=== PATIENT | male | born 1975 | race Caucasian/White ===

== ENCOUNTER 2023-11-15 21:10 | Emergency (ER) | payer OTHER ==
[2023-11-15 21:33] VITALS: TEMP 98.1; O2SAT 98
--- NOTE | 2023-11-15 21:44 | ERPHSYRPT ---
- History of Present Illness Time Seen by Provider: 11/15/23 21:35 Source: patient Exam Limitations: no limitations Physician History: This is a 48-year-old white male patient who is right-handed and whose tetanus status up-to-date. He was working with a machine prior to arrival and his right index finger was caught in a belt and the machine. Patient presents with distal right index finger pain and skin tear present. Patient has full range of motion with no tendon injury apparent. Timing/Duration: today Quality: painful Severity: mild Location: hands (Right hand distal second digit) Allergies/Adverse Reactions: No Known Drug Allergies Allergy (Unverified 11/15/23 21:50) Travel Risk - International Travel Have you traveled outside of the country in past 3 weeks: No - Coronavirus Screening Are you exhibiting any of the following symptoms?: No Close contact with a COVID-19 positive Pt in past 14-21 Days: No - Review of Systems Constitutional: No Symptoms Eyes: No Symptoms Ears, Nose, & Throat: No Symptoms Respiratory: No Symptoms Cardiac: No Symptoms Abdominal/Gastrointestinal: No Symptoms Genitourinary Symptoms: No Symptoms Musculoskeletal: Injury (Right index finger) Skin: Other (Skin flap/tears index finger distal tip) Neurological: No Symptoms Psychological: No Symptoms Endocrine: No Symptoms Hematologic/Lymphatic: No Symptoms Immunological/Allergic: No Symptoms All Other Systems: Reviewed and Negative - Past Medical History Pertinent Past Medical History: No - Past Surgical History Past Surgical History: No - Nursing Vital Signs Nursing Vital Signs: Initial Vital Signs Temperature 98.1 F 11/15/23 21:31 Pulse Rate 70 11/15/23 21:31 Respiratory Rate 20 11/15/23 21:31 Blood Pressure 186/80 11/15/23 21:31 O2 Sat by Pulse Oximetry 98 11/15/23 21:31 Pain Scale Pain Intensity 4 - Physical Exam SpO2: 98 Procedures - Laceration/Wound Repair Right Anterior/Posterior Distal Finger Time of Procedure: 22:40 Wound Location: Right, hand (Distal index finger) Wound Length (cm): 1 Wound's Depth, Shape: superficial, linear, flap (Skin tear) Wound Explored: contaminated (Wound explored to the base in a bloodless field. No foreign body present.) Irrigated: Yes Hibiclens Prep: Yes Wound Repaired With: Steri-strips (Benzoin), Dermabond Ordered Tests: Active Orders 24 hr Category Date Time Status HAND (MINIMUM 3 VIEWS) Stat Exams 11/15/23 21:44 Taken Medication Summary Discontinued Medications Generic Name Dose Route Start Last Admin Trade Name Lloyd PRN Reason Stop Dose Admin Lidocaine HCl 5 ml 11/15/23 21:45 Lidocaine Hcl 1% 20 Ml Mdv 20 Ml Ml IJ 11/15/23 21:46 STAT ONE - Progress Progress: improved Progress Note: 11/15/23 22:46 Patient's medical issue is 1 of low complexity. The level complex in the workup performed based on review the patient's past medical history, review the patient's medication list, review the patient's drug allergy list, history present illness and physical findings on examination. X-ray of the right hand was ordered. Patient is not in need of any laboratory studies. I interpreted the x-ray of the patient's right hand. There is no evidence of any acute fracture or dislocation. Counseled pt/family regarding: diagnosis, need for follow-up, rad results Medical Desision Making - Diagnostic Testing Diagnostic test were ordered, analyzed, and reviewed by me: Yes Radiological Interpretation: Interpreted by me - Departure Departure Disposition: Home Clinical Impression: Injury of right index finger, Skin tear Condition: Stable Critical Care Time: No Referrals: GINGER AQUINO [Primary Care Provider] - Follow up/PCP as directed Additional Instructions: Keep the dressing in place for 24 hours. After 24 hours, remove the pressure dressing and leave the Steri-Strips in place until they fall off and a 5 to 7 days. As the Steri-Strips curl up, trim them with scissors. Take your antibiotics as prescribed. Use Tylenol and ibuprofen for pain control. Prescriptions: Cephalexin Mh 500 mg [Keflex 500 mg] 500 mg PO TID #15 cap
[2023-11-15] MEDS ORDERED: XYLOCAINE 1% HCL 20 ML MDV IJ ONE (21:45)
[2023-11-15] MEDS ORDERED: KEFLEX 500 MG PO ONE (22:48)
[2023-11-15] MEDS ORDERED: OXYCODONE-ACETAMINOPHEN 10-325 PO STA (22:48)
[2023-11-15] MEDS ORDERED: KEFLEX 500 MG ONE (22:50)
[2023-11-15] MEDS ORDERED: OXYCODONE-ACETAMINOPHEN 10-325 ONE (23:01)
[2023-11-15 23:24] VITALS: BP 178/85; PULSE 61; RESP 18
--- NOTE | 2023-11-16 08:52 | XRAY ---
Indication: Pain following injury. Comparison: None 3 view left hand demonstrates 2nd finger soft tissue swelling with distal laceration. Minimal degenerative changes all IP joints. No other bony, articular, or soft tissue abnormalities.
== END 2023-11-15 23:20 | disposition home or self-care (01) ==
LOC: ED 21:10
DX: S61.210A Laceration without foreign body of right index finger without damage to nail, initial encounter (principal); W31.89XA Contact with other specified machinery, initial encounter; Y92.63 Factory as the place of occurrence of the external cause; Y99.0 Civilian activity done for income or pay
CPT/HCPCS: 12001; 73130; 99283; A9270-GY